=== PATIENT | female | born 1995 | race Caucasian/White ===

== ENCOUNTER 2017-04-25 22:43 | Emergency (ER) | payer OTHER ==
[~2017-04-25] VITALS: Ht 162.6 cm; Wt 60.0 kg
[~2017-04-25 22:43] MED LIST: ALBUAER INH
[2017-04-25 22:50] VITALS: TEMP 36.8; Ht 162.6 cm; Wt 60.0 kg
[2017-04-25] MEDS ORDERED: SODIUM CHLORIDE 0.9% 1000ML 2,000 ML IV STA (23:35)
--- NOTE | 2017-04-25 23:39 | EMERGENCY ROOM VISIT NOTE ---
History Report prepared by Ny: Dilip Branch Under the Supervision of: Dr. Brandon Thurman M.D. First contact with patient: 23:29 Chief Complaint: CARDIAC ASSESSMENT Stated Complaint: ELEVATED HEART RATE, HARD TO BREATH, SHARP PAINS Nursing Triage Summary: patient was in class monitoring their heart rates and running. patient states that her heart rate reached 220, she vomited and passed out. states she has not felt well all day, and that her heart rate has continued to be above 100 presently on antibotics for strep and has had temp History of Present Illness The patient is a 21 year old female who presents to the Emergency Room with complaints of constant, sharp and stabbing, left-sided chest pain beginning today. The patient states that she was jogging for class today, when her heart rate reached 224. She notes that she has a resting heart rate that is typically high, but a heart rate this high is unusual for her. She reports that she felt sick, sat down, and then slowly passed out to the side following her run. She also complains of SOB and a low fever. The patient states that she has had strep throat for the last four days, and is currently finishing up her antibiotic treatment. She denies any urinary symptoms, abdominal pain, diarrhea , back pain, leg swelling, and calf pain. She also denies any recent travel, family history of blood clots, and recent surgery but is currently on control. She notes that she is taking azithromycin and took Advil today. She reports that she has a history of mono. Source of History: patient Onset: today Position: chest (left) Symptom Intensity: heart rate of 224 Quality: sharp, other (stabbing) Timing: constant Associated Symptoms: + fevers (low), + SOB, No abdominal pain, No back pain , No diarrhea, No urinary symptoms Note: She denies any leg swelling and calf pain. Review of Systems See HPI for pertinent positives & negatives. A total of 10 systems reviewed and were otherwise negative. Past Medical & Surgical Medical Problems: (1) Mononucleosis (2) No chronic problems (3) Strep throat Surgical Problems: (1) [place] teeth extracted Family History No significant family history Social History Smoking Status: Never Smoker Alcohol Use: occasionally Drug Use: none Marital Status: single Housing Status: lives with roommate Occupation Status: [employer] student Current/Historical Medications Scheduled Control Pills ( Control Pills), 1 TAB PO DAILY Allergies Coded Allergies: Amoxicillin (Verified Allergy, Unknown, RASH, 04/26/17) Penicillins (Verified Allergy, Unknown, RASH, 04/26/17) Physical Exam Vital Signs Date Time Temp Pulse Resp B/P (MAP) Pulse Ox O2 Delivery O2 Flow Rate FiO2 04/26/17 01:40 97 16 124/73 98 04/26/17 01:13 97 16 124/73 98 Room Air 04/25/17 23:59 85 16 130/97 100 04/25/17 22:50 36.8 102 20 123/77 97 Room Air Physical Exam GENERAL: Patient is mildly anxious appearing and in no acute distress, appears dehydrated. HEENT: No acute trauma, normocephalic atraumatic, mucous membranes moist, no nasal congestion, no scleral icterus. Cold sore on right lip, old right tongue laceration. NECK: No stridor, no adenopathy, no meningismus, trachea is midline. LUNGS: No dyspnea. Clear to auscultation and equal bilaterally. No wheeze, no rhonchi. HEART: Regular rhythm and tachycardic. No murmurs, rubs, gallops appreciated. ABDOMEN: Soft, nontender, bowel sounds positive, no masses appreciated, no peritonitis. CHEST: Tenderness to palpation of left ribs. BACK: No midline tenderness, no CVA tenderness EXTREMITIES: Normal motion all extremities, no cyanosis, no edema. NEUROLOGIC: Alert and oriented, no acute motor or sensory deficits, no focal weakness, cranial nerves grossly intact. SKIN: No rash, no jaundice, no diaphoresis. Medical Decision & Procedures ER Provider Diagnostic Interpretation: X ray results are stated below per my interpretation: Chest: 1 view: No infiltrate, no effusion, normal cardiac border. Laboratory Results 04/26/17 00:00 Red Blood Count 4.68, Mean Corpuscular Volume 87.2, Mean Corpuscular Hemoglobin 29.7, Mean Corpuscular Hemoglobin Concent 34.1, Mean Platelet Volume 10.0, Neutrophils (%) (Auto) 65.3, Lymphocytes (%) (Auto) 25.1, Monocytes (%) (Auto) 8.3, Eosinophils (%) (Auto) 0.8, Basophils (%) (Auto) 0.3, Neutrophils # (Auto) 6.16, Lymphocytes # (Auto) 2.37, Monocytes # (Auto) 0.78, Eosinophils # (Auto) 0.08, Basophils # (Auto) 0.03 04/26/17 00:00 Test 04/26/17 00:00 White Blood Count 9.44 K/uL (4.8-10.8) Red Blood Count 4.68 M/uL (4.2-5.4) Hemoglobin 13.9 g/dL (12.0-16.0) Hematocrit 40.8 % (37-47) Mean Corpuscular Volume 87.2 fL (80-100) Mean Corpuscular Hemoglobin 29.7 pg (25-34) Mean Corpuscular Hemoglobin Concent 34.1 g/dl (32-36) Platelet Count 237 K/uL (130-400) Mean Platelet Volume 10.0 fL (7.4-10.4) Neutrophils (%) (Auto) 65.3 % Lymphocytes (%) (Auto) 25.1 % Monocytes (%) (Auto) 8.3 % Eosinophils (%) (Auto) 0.8 % Basophils (%) (Auto) 0.3 % Neutrophils # (Auto) 6.16 K/uL (1.4-6.5) Lymphocytes # (Auto) 2.37 K/uL (1.2-3.4) Monocytes # (Auto) 0.78 K/uL (0.11-0.59) Eosinophils # (Auto) 0.08 K/uL (0-0.5) Basophils # (Auto) 0.03 K/uL (0-0.2) RDW Standard Deviation 44.1 fL (36.4-46.3) RDW Coefficient of Variation 14.0 % (11.5-14.5) Immature Granulocyte % (Auto) 0.2 % Immature Granulocyte # (Auto) 0.02 K/uL (0.00-0.02) D-Dimer 250 ug/L FEU (0-500) Anion Gap 5.0 mmol/L (3-11) Est Creatinine Clear Calc Drug Dose 117.5 ml/min Estimated GFR () 147.4 Estimated GFR (Non- 127.2 BUN/Creatinine Ratio 14.4 (10-20) Calcium Level 8.8 mg/dl (8.5-10.1) Total Creatine Kinase 136 U/L (26-192) Troponin I < 0.015 ng/ml (0-0.045) Monoscreen NEG (NEG) Laboratory results as reviewed by me. Medications Administered Medications (Trade) Dose Ordered Sig/Doe Route Start Time Stop Time Status Last Admin Dose Admin Sodium Chloride 2,000 ml @ 999 mls/hr Q2H1M STAT IV 04/25/17 23:35 04/26/17 01:35 DC 04/25/17 23:59 999 MLS/HR ECG Indication: chest pain Rate (beats per minute): 83 Rhythm: other (Normal sinus with sinus arrhythmia) Findings: no ectopy, other (QTC of 408, no ischemia) Change: Patient's electrocardiogram interpreted by me. ED Course 2329: The patient was evaluated in room C11. A complete history and physical exam was performed. 0128: I reevaluated and updated the patient. She is feeling better but notes a slight runny nose. I advised a followup appointment with her PCP for further testing. 0255: Reevaluated the patient. Discussed results and discharge instructions: she verbalized understanding and agreement. The patient is ready for discharge. Medical Decision Differential: Vaso-vagal, Intracerebral Event, Neurologic, Infectious, Volume Deficiency, Hypoglycemia, Electrolyte Abnormality, Cardiac Source, Toxicologic, amongst other pathologies entertained. 21 yr old female with 1 week of URI + Strep on abx who notes she was in gym when she got lightheaded, sat down and passed out. Notes some mild left chest discomfort of uncertain etiology. She is on control though otherwise no PE risks and I feel low risk, thus with negative Dimer I do not feel she meets criteria for CT PE study. CXR clear. Labs unremarkable. EKG OK. I feel that as syncope was not sudden, not during actual exertion, and she has clear reason for dehydration that this was not a cardiac event, nor that she needs to be banned from exertional sports. She notes that HR had registered 200, which could have been SVT, or just not picking up HR correctly, regardless seems unlikely it was vtach/fib given she was awake and checking it herself and symptoms weren't significant until she had already sat down. I advised rest, hydration, and PCP follow up. She has no neuro deficits, no headache thus neuro imaging not indicated. She feels vastly improved with IV fluids, looks well and comfortable with going home. Medication Reconcilliation Current Medication List: was personally reviewed by me Blood Pressure Screening Patient's blood pressure: Normal blood pressure Blood pressure disposition: Did not require urgent referral Impression Primary Impression: Syncope Additional Impression: Dehydration Scribe Attestation The scribe's documentation has been prepared under my direction and personally reviewed by me in its entirety. I confirm that the note above accurately reflects all work, treatment, procedures, and medical decision making performed by me. Departure Information Dispostion Home / Self-Care Referrals No Doctor, Assigned (PCP) Forms IMPORTANT VISIT INFORMATION Patient Instructions My [facility] Additional Instructions Rest and keep well hydrated over next few days. Avoid exertion, stimulants and alcohol. Follow up with your primary care provider. Return immediately if severe chest pain, difficulty breathing, passing out more or other concerns. Problem Qualifiers
[2017-04-26 00:13] LABS: BASO % 0.3 %; BASO ABS # 0.03 K/uL (0-0.2); EOS % 0.8 %; EOS ABS # 0.08 K/uL (0-0.5); HEMATOCRIT 40.8 % (37-47); HEMOGLOBIN 13.9 g/dL (12.0-16.0); IG# 0.02 K/uL (0.00-0.02); LYMPH % 25.1 %; LYMPH ABS # 2.37 K/uL (1.2-3.4); MEAN CELL VOLUME 87.2 fL (80-100); MEAN CORPUSCULAR HEMOGLOBIN 29.7 pg (25-34); MEAN CORPUSCULAR HGB CONC 34.1 g/dl (32-36); MONO % 8.3 %; MONO ABS # 0.78 K/uL (0.11-0.59); NEUT % 65.3 %; NEUT ABS # 6.16 K/uL (1.4-6.5); PLATELET COUNT 237 K/uL (130-400); RED CELL DISTRIBUTION WIDTH SD 44.1 fL (36.4-46.3); WHITE BLOOD COUNT 9.44 K/uL (4.8-10.8)
[2017-04-26 00:39] LABS: BLOOD UREA NITROGEN 10 mg/dl (7-18); CALCIUM 8.8 mg/dl (8.5-10.1); CARBON DIOXIDE 26 mmol/L (21-32); CREATININE 0.66 mg/dl (0.60-1.20); GLUCOSE 89 mg/dl (70-99); POTASSIUM 3.8 mmol/L (3.5-5.1); SODIUM 137 mmol/L (136-145)
[2017-04-26] MEDS ORDERED: BCPILLS PO (00:51)
[2017-04-26 01:40] VITALS: BP 124/73; PULSE 97; O2SAT 98
--- NOTE | 2017-04-26 07:33 | DIAGNOSTIC IMAGING REPORT ---
SINGLE VIEW CHEST CLINICAL HISTORY: Syncope. Left-sided chest pain. FINDINGS: An AP, portable, upright chest radiograph is obtained. No prior studies are available for comparison at the time of dictation. The examination is mildly degraded by portable technique and patient rotation. The cardiomediastinal silhouette is unremarkable. The lungs and pleural spaces are clear. No pneumothorax is seen. The bony thorax is grossly intact. IMPRESSION: No acute cardiopulmonary abnormality. Electronically signed by: Alex Thomson M.D. 04/26/2017 7:31 AM Dictated Date/Time: 04/26/2017 7:31 AM
== END 2017-04-26 01:41 | disposition home or self-care (01) ==
LOC: C.EDB 22:45 → C.EDC 04-26 01:41
DX: R55 Syncope and collapse (principal); E86.0 Dehydration